=== PATIENT | male | born 1960 | race African-American/Black ===

== ENCOUNTER 2019-04-22 13:15 | Emergency (ER) | payer OTHER ==
[~2019-04-22] VITALS: Ht 180.3 cm; Wt 90.7 kg
[2019-04-22] MEDS ORDERED: NOVOLOG100 UNIT/1 SUBQ (13:23)
[2019-04-22] MEDS ORDERED: KEFLEX500 M1 PO (14:22)
[2019-04-22 14:30] VITALS: BP 142/82
== END 2019-04-22 14:30 | disposition home or self-care (01) ==
LOC: M.ERS 13:15
DX: S62.632A Displaced fracture of distal phalanx of right middle finger, initial encounter for closed fracture (principal); E11.9 Type 2 diabetes mellitus without complications; W26.0XXA Contact with knife, initial encounter; Y92.89 Other specified places as the place of occurrence of the external cause; Y93.89 Activity, other specified; Y99.8 Other external cause status

== ENCOUNTER 2019-07-17 12:27 | Emergency (ER) | payer OTHER ==
[~2019-07-17] VITALS: Ht 180.3 cm; Wt 95.3 kg
[~2019-07-17 12:27] MED LIST: KEFLEX500 M1 PO; NOVOLOG100 UNIT/1 SUBQ
[2019-07-17 13:26] VITALS: BP 137/97
== END 2019-07-17 13:27 | disposition home or self-care (01) ==
LOC: M.ERS 12:27
DX: S61.211A Laceration without foreign body of left index finger without damage to nail, initial encounter (principal); F17.210 Nicotine dependence, cigarettes, uncomplicated; E11.9 Type 2 diabetes mellitus without complications; Z79.4 Long term (current) use of insulin; W26.8XXA Contact with other sharp object(s), not elsewhere classified, initial encounter; Y92.89 Other specified places as the place of occurrence of the external cause; Y93.H2 Activity, gardening and landscaping; Y99.8 Other external cause status